=== PATIENT | male | born 1940 | race Caucasian/White ===

== ENCOUNTER 2017-10-21 10:57 | Inpatient (IN) | payer MEDICARE, OTHER ==
[~2017-10-21] VITALS: Ht 177.8 cm; Wt 132.9 kg
[~2017-10-21 10:57] MED LIST: ALLO300 PO; AMLO5 PO; ASPI325 PO; Actos15 MG PO; BENA20 PO; Benazepril HCl40 MG PO; CARV25 PO; DOXA2 PO; FINA5 PO; FISH1000 PO; FURO40 PO; GLIM2 PO; Glucophage1000 MG PO; HYDR1TAB94 PO; IPRAOI; Klor-Con 1010 MEQ PO; METO25ER PO; OXYC10TA19; OXYC5 PO; PIOG15 PO; Percocet 5-3251 EACH PO; SIMV40 PO; SPIR25 PO; TIOT18 INH; VITAMIN D2000 UNIT PO; WARF5 PO
[2017-10-21] MEDS ORDERED: GLIM2 PO (11:30)
[2017-10-21] MEDS ORDERED: Aspirin EC81 MG (11:31)
[2017-10-21] MEDS ORDERED: BENA20 PO (11:31)
[2017-10-21] MEDS ORDERED: Ferrousul325 MG PO (11:32)
[2017-10-21] MEDS ORDERED: DOXA2 PO (11:32)
[2017-10-21] MEDS ORDERED: FLONASE ALLERG9.9 ML NS (11:33)
[2017-10-21] MEDS ORDERED: SPIRIVA RESPIMAT4 G1 IH (11:34)
[2017-10-21] MEDS ORDERED: POTCHL10ER PO (11:34)
[2017-10-21] MEDS ORDERED: AMLO5 PO (11:35)
[2017-10-21] MEDS ORDERED: METF500 PO (11:36)
[2017-10-21] MEDS ORDERED: SPIR25 PO (11:38)
[2017-10-21 12:49] LABS: BASOPHILS ABSOLUTE AUTO 0.01 K/mm3 (0.00-0.23); BASOPHILS PERCENT AUTO 0 % (0-2); EOSINOPHILS ABSOLUTE AUTO 0.02 K/mm3 (0.00-0.68); EOSINOPHILS PERCENT AUTO 0 % (0-6); Hematocrit 24.7 % (37.0-53.0); Hemoglobin 7.9 g/dL (13.5-17.5); IMMATURE GRAN ABSOLUTE AUTO 0.05 K/mm3 (0.00-0.10); IMMATURE GRAN PERCENT AUTO 1 % (0-1); LYMPHOCYTES ABSOLUTE AUTO 0.68 K/mm3 (0.84-5.20); LYMPHOCYTES PERCENT AUTO 10 % (21-46); MONOCYTES ABSOLUTE AUTO 0.46 K/mm3 (0.16-1.47); MONOCYTES PERCENT AUTO 7 % (4-13); Mean Corpuscular HGB 25.2 pg (26.0-34.0); Mean Corpuscular Volume 79 fL (80-100); Mean Platelet Volume 11.1 fL (9.1-12.4); NEUTROPHILS ABSOLUTE AUTO 5.69 K/mm3 (1.96-9.15); NEUTROPHILS PERCENT AUTO 82 % (41-73); Platelet Count 131 K/mm3 (150-400); RDW Coefficient Variation 17.7 % (11.7-14.2); RDW Standard Deviation 51.3 fL (35.1-46.3); Red Blood Cell Count 3.13 M/mm3 (4.30-5.90); White Blood Cell Count 6.91 K/mm3 (4.00-11.30)
[2017-10-21 13:13] LABS: Albumin/Globulin Ratio 0.3 (0.8-1.8); Bilirubin, Total 0.3 mg/dL (0.1-1.0); Creatinine, Blood 4.34 mg/dL (0.60-1.20); Globulin, Blood 5.9 g/dL (2.2-4.0); Potassium, Blood 7.5 mmol/L (3.5-5.5); Total Protein, Blood 7.9 g/dL (6.4-8.2)
[2017-10-21 13:55] LABS: Calcium, Ionized (POC) 1.19 mmol/L (1.10-1.46); Chloride (POC) 112 mmol/L (98-108); Creatinine (POC) 4.9 mg/dL (0.8-1.3); Glucose (ISTAT POC) 58 mg/dL (70-99); Hemoglobin (POC) 7.5 g/dL (13.5-17.5); Potassium (POC) 6.9 mmol/L (3.5-5.5); Sodium (POC) 132 mmol/L (135-148); Total CO2 (POC) 13 mmol/L (21-32)
[2017-10-21 14:33] LABS: Prothrombin Time Results 148.7 Sec (9.7-11.5)
[2017-10-21] MEDS ORDERED: CHOL10002 PO (16:22)
[2017-10-21] MEDS ORDERED: LIDO700A20 TOP (16:27)
[2017-10-21] MEDS ORDERED: PANT40 PO (16:29)
[2017-10-21] MEDS ORDERED: Afrin15 ML (16:34)
[2017-10-21] MEDS ORDERED: HYDR1TAB94 PO (16:36)
[2017-10-21] MEDS ORDERED: Coumadin7.5 MG PO (16:41)
[2017-10-21] MEDS ORDERED: AQUACEL1 EACH TOP (16:44)
[2017-10-21] MEDS ORDERED: Pedi-Dri 100,0060 GM TOP (16:59)
[2017-10-21 18:04] LABS: Source, Urine Catheter
[2017-10-21 18:07] LABS: Blood, Urine 5+ (Neg); Glucose Qualitative, Urine Neg (Neg); Ketones, Urine 1+ (Neg); Leukocyte Esterase, Urine 2+ (Neg); Nitrite, Urine Neg (Neg); Protein, Urine 3+ (Neg); Urobilinogen, Urine 1+ (Normal)
[2017-10-21 18:37] LABS: Appearance, Urine Cloudy (Clear); Bilirubin, Urine 2+ (Neg); Color, Urine Amber (P-Yellow)
[2017-10-21 18:38] LABS: Bacteria Many /hpf; Red Blood Cells, Urine TNTC /hpf (0-2); Squamous Epithelial Cells Few /hpf (Few); White Blood Cells, Urine TNTC /hpf (0-5)
[2017-10-21 21:34] LABS: Prothrombin Time Results 115.6 Sec (9.7-11.5)
[2017-10-21 21:35] LABS: International Normalized Ratio 10.34
[2017-10-21 23:05] LABS: Hematocrit 25.6 % (37.0-53.0); Hemoglobin 8.2 g/dL (13.5-17.5)
[2017-10-21 23:35] LABS: Calcium, Blood 8.2 mg/dL (8.5-10.1); Creatinine, Blood 4.06 mg/dL (0.60-1.20); Potassium, Blood 6.8 mmol/L (3.5-5.5)
[2017-10-22 06:30] LABS: International Normalized Ratio 3.25
[2017-10-22 06:49] LABS: BASOPHILS ABSOLUTE AUTO 0.01 K/mm3 (0.00-0.23); BASOPHILS PERCENT AUTO 0 % (0-2); EOSINOPHILS ABSOLUTE AUTO 0.02 K/mm3 (0.00-0.68); EOSINOPHILS PERCENT AUTO 0 % (0-6); Hematocrit 25.3 % (37.0-53.0); Hemoglobin 8.4 g/dL (13.5-17.5); IMMATURE GRAN ABSOLUTE AUTO 0.07 K/mm3 (0.00-0.10); IMMATURE GRAN PERCENT AUTO 1 % (0-1); LYMPHOCYTES PERCENT AUTO 6 % (21-46); MONOCYTES ABSOLUTE AUTO 0.54 K/mm3 (0.16-1.47); MONOCYTES PERCENT AUTO 9 % (4-13); Mean Corpuscular HGB 26.3 pg (26.0-34.0); Mean Corpuscular HGB Conc 33.2 g/dL (31.5-36.5); Mean Corpuscular Volume 79 fL (80-100); Mean Platelet Volume 10.8 fL (9.1-12.4); NEUTROPHILS ABSOLUTE AUTO 5.25 K/mm3 (1.96-9.15); NEUTROPHILS PERCENT AUTO 83 % (41-73); Platelet Count 118 K/mm3 (150-400); RDW Coefficient Variation 17.2 % (11.7-14.2); RDW Standard Deviation 49.9 fL (35.1-46.3); Red Blood Cell Count 3.19 M/mm3 (4.30-5.90); White Blood Cell Count 6.29 K/mm3 (4.00-11.30)
[2017-10-22 06:50] LABS: Alanine Aminotransfer (ALT/SGP 25 U/L (12-78); Albumin, Blood 1.9 g/dL (3.4-5.0); Albumin/Globulin Ratio 0.4 (0.8-1.8); Alk Phos 100 U/L (50-136); Anion Gap 12 mmol/L (6-16); Aspartate Aminotrans (AST/SGOT 45 U/L (12-37); Bilirubin, Total 0.6 mg/dL (0.1-1.0); Blood Urea Nitrogen 124 mg/dL (8-24); Bun/Creatinine Ratio 32.7 (12.0-20.0); CO2, Blood 17 mmol/L (21-32); CPK Creatine Kinase 109 U/L (39-308); Calcium, Blood 8.6 mg/dL (8.5-10.1); Chloride, Blood 108 mmol/L (98-108); Creatinine, Blood 3.79 mg/dL (0.60-1.20); Globulin, Blood 5.4 g/dL (2.2-4.0); Glomerular Filtration Rate 16 (60-); Glucose, Blood 72 mg/dL (70-99); Magnesium, Blood 2.2 mg/dL (1.6-2.4); Phosphorus, Blood 4.4 mg/dL (2.5-4.9); Potassium, Blood 5.9 mmol/L (3.5-5.5); Sodium, Blood 137 mmol/L (136-145); Total Protein, Blood 7.3 g/dL (6.4-8.2)
[2017-10-22 07:17] LABS: BASOPHILS ABSOLUTE MAN 0.06 K/mm3 (0.00-0.23); BASOPHILS PERCENT MAN 1 % (0-2); EOSINOPHILS PERCENT MAN 0 % (0-6); LYMPHOCYTES ABSOLUTE MAN 0.62 K/mm3 (0.84-5.20); LYMPHOCYTES PERCENT MAN 10 % (21-46); MONOCYTES ABSOLUTE MAN 0.06 K/mm3 (0.16-1.47); MONOCYTES PERCENT MAN 1 % (4-13); NEUTROPHILS ABSOLUTE MAN 5.53 K/mm3 (1.96-9.15); SEG NEUTROPHILS PERCENT MAN 88 % (41-73); TOTAL CELLS COUNTED 100
[2017-10-22 18:36] LABS: Hematocrit 26.3 % (37.0-53.0); Hemoglobin 8.5 g/dL (13.5-17.5)
[2017-10-23 05:54] LABS: Hematocrit 22.3 % (37.0-53.0); Hemoglobin 7.1 g/dL (13.5-17.5); Mean Corpuscular HGB 26.1 pg (26.0-34.0); Mean Corpuscular HGB Conc 31.8 g/dL (31.5-36.5); Mean Platelet Volume 10.4 fL (9.1-12.4); Platelet Count 80 K/mm3 (150-400); RDW Coefficient Variation 17.6 % (11.7-14.2); RDW Standard Deviation 53.3 fL (35.1-46.3); Red Blood Cell Count 2.72 M/mm3 (4.30-5.90); White Blood Cell Count 4.12 K/mm3 (4.00-11.30)
[2017-10-23 05:57] LABS: Mean Corpuscular Volume 82 fL (80-100)
[2017-10-23 06:11] LABS: Albumin, Blood 1.7 g/dL (3.4-5.0); Anion Gap 8 mmol/L (6-16); Blood Urea Nitrogen 117 mg/dL (8-24); Bun/Creatinine Ratio 38.6 (12.0-20.0); CO2, Blood 24 mmol/L (21-32); Calcium, Blood 7.8 mg/dL (8.5-10.1); Chloride, Blood 108 mmol/L (98-108); Creatinine, Blood 3.03 mg/dL (0.60-1.20); Glomerular Filtration Rate 21 (60-); Glucose, Blood 191 mg/dL (70-99); Magnesium, Blood 2.1 mg/dL (1.6-2.4); Phosphorus, Blood 3.7 mg/dL (2.5-4.9); Potassium, Blood 4.9 mmol/L (3.5-5.5); Sodium, Blood 140 mmol/L (136-145)
[2017-10-23 08:46] LABS: International Normalized Ratio 2.3; Prothrombin Time Results 24.5 Sec (9.7-11.5)
[2017-10-24 04:09] LABS: BASOPHILS ABSOLUTE AUTO 0.01 K/mm3 (0.00-0.23); BASOPHILS PERCENT AUTO 0 % (0-2); EOSINOPHILS ABSOLUTE AUTO 0.04 K/mm3 (0.00-0.68); EOSINOPHILS PERCENT AUTO 1 % (0-6); Hematocrit 25.2 % (37.0-53.0); Hemoglobin 7.8 g/dL (13.5-17.5); IMMATURE GRAN ABSOLUTE AUTO 0.05 K/mm3 (0.00-0.10); IMMATURE GRAN PERCENT AUTO 1 % (0-1); LYMPHOCYTES ABSOLUTE AUTO 0.66 K/mm3 (0.84-5.20); LYMPHOCYTES PERCENT AUTO 14 % (21-46); MONOCYTES ABSOLUTE AUTO 0.38 K/mm3 (0.16-1.47); MONOCYTES PERCENT AUTO 8 % (4-13); Mean Corpuscular HGB 26.8 pg (26.0-34.0); NEUTROPHILS ABSOLUTE AUTO 3.47 K/mm3 (1.96-9.15); NEUTROPHILS PERCENT AUTO 75 % (41-73); Platelet Count 103 K/mm3 (150-400); RDW Coefficient Variation 20.5 % (11.7-14.2); RDW Standard Deviation 57.7 fL (35.1-46.3); Red Blood Cell Count 2.91 M/mm3 (4.30-5.90); White Blood Cell Count 4.61 K/mm3 (4.00-11.30)
[2017-10-24 04:12] LABS: Mean Corpuscular Volume 87 fL (80-100)
[2017-10-24 05:51] LABS: International Normalized Ratio 1.85; Prothrombin Time Results 19.6 Sec (9.7-11.5)
[2017-10-24 06:02] LABS: Albumin, Blood 1.7 g/dL (3.4-5.0); Albumin/Globulin Ratio 0.4 (0.8-1.8); Bilirubin, Total 0.6 mg/dL (0.1-1.0); Bun/Creatinine Ratio 41.4 (12.0-20.0); Creatinine, Blood 2.32 mg/dL (0.60-1.20); Globulin, Blood 4.7 g/dL (2.2-4.0); Magnesium, Blood 2.2 mg/dL (1.6-2.4); Phosphorus, Blood 3.3 mg/dL (2.5-4.9); Potassium, Blood 4.3 mmol/L (3.5-5.5); Total Protein, Blood 6.4 g/dL (6.4-8.2)
[2017-10-25 04:43] LABS: BASOPHILS ABSOLUTE AUTO 0.01 K/mm3 (0.00-0.23); BASOPHILS PERCENT AUTO 0 % (0-2); EOSINOPHILS ABSOLUTE AUTO 0.06 K/mm3 (0.00-0.68); EOSINOPHILS PERCENT AUTO 1 % (0-6); Hematocrit 26.5 % (37.0-53.0); Hemoglobin 8.4 g/dL (13.5-17.5); IMMATURE GRAN ABSOLUTE AUTO 0.09 K/mm3 (0.00-0.10); IMMATURE GRAN PERCENT AUTO 2 % (0-1); LYMPHOCYTES ABSOLUTE AUTO 0.77 K/mm3 (0.84-5.20); LYMPHOCYTES PERCENT AUTO 18 % (21-46); MONOCYTES ABSOLUTE AUTO 0.32 K/mm3 (0.16-1.47); MONOCYTES PERCENT AUTO 8 % (4-13); Mean Corpuscular HGB 26.8 pg (26.0-34.0); Mean Corpuscular HGB Conc 31.7 g/dL (31.5-36.5); Mean Platelet Volume 9.9 fL (9.1-12.4); NEUTROPHILS ABSOLUTE AUTO 2.97 K/mm3 (1.96-9.15); NEUTROPHILS PERCENT AUTO 71 % (41-73); Platelet Count 83 K/mm3 (150-400); RDW Coefficient Variation 17.4 % (11.7-14.2); RDW Standard Deviation 53.9 fL (35.1-46.3); Red Blood Cell Count 3.14 M/mm3 (4.30-5.90); White Blood Cell Count 4.22 K/mm3 (4.00-11.30)
[2017-10-25 04:56] LABS: Mean Corpuscular Volume 84 fL (80-100)
[2017-10-25 04:59] LABS: International Normalized Ratio 1.74; Prothrombin Time Results 18.4 Sec (9.7-11.5)
[2017-10-25 05:02] LABS: Albumin, Blood 1.8 g/dL (3.4-5.0); Anion Gap 5 mmol/L (6-16); Blood Urea Nitrogen 68 mg/dL (8-24); Bun/Creatinine Ratio 41.7 (12.0-20.0); CO2, Blood 26 mmol/L (21-32); Calcium, Blood 8.1 mg/dL (8.5-10.1); Chloride, Blood 116 mmol/L (98-108); Creatinine, Blood 1.63 mg/dL (0.60-1.20); Glomerular Filtration Rate 44 (60-); Glucose, Blood 174 mg/dL (70-99); Magnesium, Blood 2.2 mg/dL (1.6-2.4); Phosphorus, Blood 2.5 mg/dL (2.5-4.9); Sodium, Blood 147 mmol/L (136-145)
[2017-10-26 05:18] LABS: BASOPHILS ABSOLUTE AUTO 0.01 K/mm3 (0.00-0.23); BASOPHILS PERCENT AUTO 0 % (0-2); EOSINOPHILS ABSOLUTE AUTO 0.05 K/mm3 (0.00-0.68); EOSINOPHILS PERCENT AUTO 1 % (0-6); Hemoglobin 8.2 g/dL (13.5-17.5); IMMATURE GRAN ABSOLUTE AUTO 0.14 K/mm3 (0.00-0.10); IMMATURE GRAN PERCENT AUTO 3 % (0-1); LYMPHOCYTES ABSOLUTE AUTO 0.98 K/mm3 (0.84-5.20); LYMPHOCYTES PERCENT AUTO 22 % (21-46); MONOCYTES ABSOLUTE AUTO 0.38 K/mm3 (0.16-1.47); MONOCYTES PERCENT AUTO 9 % (4-13); Mean Corpuscular HGB 26.4 pg (26.0-34.0); Mean Corpuscular HGB Conc 31.5 g/dL (31.5-36.5); Mean Corpuscular Volume 84 fL (80-100); Mean Platelet Volume 10.3 fL (9.1-12.4); NEUTROPHILS ABSOLUTE AUTO 2.89 K/mm3 (1.96-9.15); NEUTROPHILS PERCENT AUTO 65 % (41-73); Platelet Count 86 K/mm3 (150-400); RDW Coefficient Variation 17.3 % (11.7-14.2); RDW Standard Deviation 53.2 fL (35.1-46.3); Red Blood Cell Count 3.11 M/mm3 (4.30-5.90); White Blood Cell Count 4.45 K/mm3 (4.00-11.30)
[2017-10-26 05:48] LABS: Albumin, Blood 1.8 g/dL (3.4-5.0); Anion Gap 6 mmol/L (6-16); Blood Urea Nitrogen 41 mg/dL (8-24); Bun/Creatinine Ratio 34.2 (12.0-20.0); CO2, Blood 24 mmol/L (21-32); Calcium, Blood 8.2 mg/dL (8.5-10.1); Chloride, Blood 117 mmol/L (98-108); Glomerular Filtration Rate >60 (60-); Glucose, Blood 157 mg/dL (70-99); Magnesium, Blood 1.9 mg/dL (1.6-2.4); Phosphorus, Blood 1.9 mg/dL (2.5-4.9); Potassium, Blood 3.9 mmol/L (3.5-5.5); Sodium, Blood 147 mmol/L (136-145)
[2017-10-27 04:23] LABS: Hematocrit 24.8 % (37.0-53.0); Hemoglobin 7.9 g/dL (13.5-17.5)
[2017-10-27 05:54] LABS: Albumin, Blood 1.8 g/dL (3.4-5.0); Anion Gap 8 mmol/L (6-16); Blood Urea Nitrogen 29 mg/dL (8-24); CO2, Blood 23 mmol/L (21-32); Chloride, Blood 112 mmol/L (98-108); Glomerular Filtration Rate >60 (60-); Glucose, Blood 149 mg/dL (70-99); Magnesium, Blood 1.8 mg/dL (1.6-2.4); Phosphorus, Blood 2.3 mg/dL (2.5-4.9); Potassium, Blood 3.8 mmol/L (3.5-5.5); Sodium, Blood 143 mmol/L (136-145)
[2017-10-27 15:04] LABS: Stool Occult Bld Immuno 1 Negative (NEGATIVE)
[2017-10-28 04:17] LABS: Hematocrit 26.6 % (37.0-53.0); Hemoglobin 8.4 g/dL (13.5-17.5)
[2017-10-28 04:44] LABS: Albumin, Blood 1.9 g/dL (3.4-5.0); Anion Gap 8 mmol/L (6-16); Blood Urea Nitrogen 24 mg/dL (8-24); Bun/Creatinine Ratio 25.7 (12.0-20.0); CO2, Blood 22 mmol/L (21-32); Calcium, Blood 8.1 mg/dL (8.5-10.1); Chloride, Blood 111 mmol/L (98-108); Creatinine, Blood 0.93 mg/dL (0.60-1.20); Glomerular Filtration Rate >60 (60-); Glucose, Blood 118 mg/dL (70-99); Magnesium, Blood 1.7 mg/dL (1.6-2.4); Phosphorus, Blood 2.7 mg/dL (2.5-4.9); Potassium, Blood 3.7 mmol/L (3.5-5.5); Sodium, Blood 141 mmol/L (136-145)
[2017-10-28 09:07] LABS: Vancomycin, Trough 15.5 ug/mL (5.0-10.0)
[2017-10-29 05:43] LABS: Hematocrit 23.4 % (37.0-53.0); Hemoglobin 7.6 g/dL (13.5-17.5)
[2017-10-29 06:08] LABS: Albumin, Blood 1.7 g/dL (3.4-5.0); Anion Gap 10 mmol/L (6-16); Blood Urea Nitrogen 26 mg/dL (8-24); Bun/Creatinine Ratio 27.2 (12.0-20.0); CO2, Blood 22 mmol/L (21-32); Calcium, Blood 7.9 mg/dL (8.5-10.1); Chloride, Blood 109 mmol/L (98-108); Creatinine, Blood 0.96 mg/dL (0.60-1.20); Glomerular Filtration Rate >60 (60-); Glucose, Blood 150 mg/dL (70-99); Magnesium, Blood 1.7 mg/dL (1.6-2.4); Phosphorus, Blood 2.5 mg/dL (2.5-4.9); Potassium, Blood 3.4 mmol/L (3.5-5.5); Sodium, Blood 141 mmol/L (136-145)
[2017-10-30 05:37] LABS: BASOPHILS ABSOLUTE AUTO 0.01 K/mm3 (0.00-0.23); BASOPHILS PERCENT AUTO 0 % (0-2); EOSINOPHILS ABSOLUTE AUTO 0.05 K/mm3 (0.00-0.68); EOSINOPHILS PERCENT AUTO 1 % (0-6); Hematocrit 24.8 % (37.0-53.0); IMMATURE GRAN ABSOLUTE AUTO 0.05 K/mm3 (0.00-0.10); IMMATURE GRAN PERCENT AUTO 1 % (0-1); LYMPHOCYTES ABSOLUTE AUTO 0.86 K/mm3 (0.84-5.20); LYMPHOCYTES PERCENT AUTO 17 % (21-46); MONOCYTES ABSOLUTE AUTO 0.35 K/mm3 (0.16-1.47); MONOCYTES PERCENT AUTO 7 % (4-13); Mean Corpuscular HGB 26.8 pg (26.0-34.0); Mean Corpuscular HGB Conc 32.3 g/dL (31.5-36.5); Mean Corpuscular Volume 83 fL (80-100); Mean Platelet Volume 10.7 fL (9.1-12.4); NEUTROPHILS ABSOLUTE AUTO 3.64 K/mm3 (1.96-9.15); NEUTROPHILS PERCENT AUTO 73 % (41-73); Platelet Count 79 K/mm3 (150-400); RDW Coefficient Variation 17.7 % (11.7-14.2); RDW Standard Deviation 52.7 fL (35.1-46.3); Red Blood Cell Count 2.99 M/mm3 (4.30-5.90); White Blood Cell Count 4.96 K/mm3 (4.00-11.30)
[2017-10-30 06:18] LABS: Alanine Aminotransfer (ALT/SGP 29 U/L (12-78); Albumin, Blood 1.9 g/dL (3.4-5.0); Albumin/Globulin Ratio 0.4 (0.8-1.8); Alk Phos 89 U/L (50-136); Anion Gap 9 mmol/L (6-16); Aspartate Aminotrans (AST/SGOT 37 U/L (12-37); Bilirubin, Total 0.8 mg/dL (0.1-1.0); Blood Urea Nitrogen 25 mg/dL (8-24); Bun/Creatinine Ratio 29.7 (12.0-20.0); CO2, Blood 23 mmol/L (21-32); Calcium, Blood 8.1 mg/dL (8.5-10.1); Chloride, Blood 109 mmol/L (98-108); Creatinine, Blood 0.84 mg/dL (0.60-1.20); Globulin, Blood 4.6 g/dL (2.2-4.0); Glomerular Filtration Rate >60 (60-); Glucose, Blood 148 mg/dL (70-99); Magnesium, Blood 1.8 mg/dL (1.6-2.4); Phosphorus, Blood 2.4 mg/dL (2.5-4.9); Potassium, Blood 3.5 mmol/L (3.5-5.5); Sodium, Blood 141 mmol/L (136-145); Total Protein, Blood 6.5 g/dL (6.4-8.2)
[2017-10-30 17:12] LABS: Vancomycin, Trough 20.7 ug/mL (5.0-10.0)
[2017-10-31 06:22] LABS: Hematocrit 24.4 % (37.0-53.0); Hemoglobin 7.8 g/dL (13.5-17.5)
[2017-10-31 06:38] LABS: Albumin, Blood 1.9 g/dL (3.4-5.0); Anion Gap 6 mmol/L (6-16); Blood Urea Nitrogen 22 mg/dL (8-24); Bun/Creatinine Ratio 27.1 (12.0-20.0); CO2, Blood 24 mmol/L (21-32); Calcium, Blood 8.1 mg/dL (8.5-10.1); Chloride, Blood 111 mmol/L (98-108); Creatinine, Blood 0.81 mg/dL (0.60-1.20); Glomerular Filtration Rate >60 (60-); Glucose, Blood 136 mg/dL (70-99); Magnesium, Blood 1.8 mg/dL (1.6-2.4); Phosphorus, Blood 2.4 mg/dL (2.5-4.9); Potassium, Blood 3.6 mmol/L (3.5-5.5); Sodium, Blood 141 mmol/L (136-145)
[2017-11-01 05:52] LABS: BASOPHILS ABSOLUTE AUTO 0.01 K/mm3 (0.00-0.23); BASOPHILS PERCENT AUTO 0 % (0-2); EOSINOPHILS ABSOLUTE AUTO 0.03 K/mm3 (0.00-0.68); EOSINOPHILS PERCENT AUTO 1 % (0-6); Hematocrit 25.5 % (37.0-53.0); Hemoglobin 8.2 g/dL (13.5-17.5); IMMATURE GRAN ABSOLUTE AUTO 0.03 K/mm3 (0.00-0.10); IMMATURE GRAN PERCENT AUTO 1 % (0-1); LYMPHOCYTES ABSOLUTE AUTO 0.67 K/mm3 (0.84-5.20); LYMPHOCYTES PERCENT AUTO 15 % (21-46); MONOCYTES ABSOLUTE AUTO 0.49 K/mm3 (0.16-1.47); MONOCYTES PERCENT AUTO 11 % (4-13); Mean Corpuscular HGB 26.9 pg (26.0-34.0); Mean Corpuscular HGB Conc 32.2 g/dL (31.5-36.5); Mean Corpuscular Volume 84 fL (80-100); Mean Platelet Volume 10.6 fL (9.1-12.4); NEUTROPHILS ABSOLUTE AUTO 3.36 K/mm3 (1.96-9.15); NEUTROPHILS PERCENT AUTO 73 % (41-73); Platelet Count 89 K/mm3 (150-400); RDW Coefficient Variation 18.1 % (11.7-14.2); RDW Standard Deviation 54.2 fL (35.1-46.3); Red Blood Cell Count 3.05 M/mm3 (4.30-5.90); White Blood Cell Count 4.59 K/mm3 (4.00-11.30)
[2017-11-01 06:27] LABS: Anion Gap 8 mmol/L (6-16); Blood Urea Nitrogen 23 mg/dL (8-24); Bun/Creatinine Ratio 29.1 (12.0-20.0); CO2, Blood 24 mmol/L (21-32); Calcium, Blood 8.3 mg/dL (8.5-10.1); Chloride, Blood 110 mmol/L (98-108); Creatinine, Blood 0.79 mg/dL (0.60-1.20); Glomerular Filtration Rate >60 (60-); Glucose, Blood 147 mg/dL (70-99); Magnesium, Blood 1.9 mg/dL (1.6-2.4); Phosphorus, Blood 2.7 mg/dL (2.5-4.9); Potassium, Blood 3.4 mmol/L (3.5-5.5); Sodium, Blood 142 mmol/L (136-145)
[2017-11-02 05:48] LABS: BASOPHILS ABSOLUTE AUTO 0.01 K/mm3 (0.00-0.23); BASOPHILS PERCENT AUTO 0 % (0-2); EOSINOPHILS ABSOLUTE AUTO 0.05 K/mm3 (0.00-0.68); EOSINOPHILS PERCENT AUTO 1 % (0-6); Hematocrit 25.5 % (37.0-53.0); IMMATURE GRAN ABSOLUTE AUTO 0.02 K/mm3 (0.00-0.10); IMMATURE GRAN PERCENT AUTO 0 % (0-1); LYMPHOCYTES ABSOLUTE AUTO 0.61 K/mm3 (0.84-5.20); LYMPHOCYTES PERCENT AUTO 14 % (21-46); MONOCYTES ABSOLUTE AUTO 0.46 K/mm3 (0.16-1.47); MONOCYTES PERCENT AUTO 10 % (4-13); Mean Corpuscular HGB 26.2 pg (26.0-34.0); Mean Corpuscular HGB Conc 31.4 g/dL (31.5-36.5); Mean Corpuscular Volume 84 fL (80-100); NEUTROPHILS ABSOLUTE AUTO 3.37 K/mm3 (1.96-9.15); NEUTROPHILS PERCENT AUTO 75 % (41-73); Platelet Count 94 K/mm3 (150-400); RDW Coefficient Variation 18.3 % (11.7-14.2); RDW Standard Deviation 54.8 fL (35.1-46.3); Red Blood Cell Count 3.05 M/mm3 (4.30-5.90); White Blood Cell Count 4.52 K/mm3 (4.00-11.30)
[2017-11-02 06:09] LABS: Magnesium, Blood 1.9 mg/dL (1.6-2.4)
[2017-11-02 06:12] LABS: Albumin, Blood 1.9 g/dL (3.4-5.0); Anion Gap 7 mmol/L (6-16); Blood Urea Nitrogen 22 mg/dL (8-24); Bun/Creatinine Ratio 29.3 (12.0-20.0); CO2, Blood 25 mmol/L (21-32); Calcium, Blood 8.3 mg/dL (8.5-10.1); Chloride, Blood 111 mmol/L (98-108); Creatinine, Blood 0.75 mg/dL (0.60-1.20); Glomerular Filtration Rate >60 (60-); Glucose, Blood 147 mg/dL (70-99); Phosphorus, Blood 2.1 mg/dL (2.5-4.9); Potassium, Blood 3.5 mmol/L (3.5-5.5); Sodium, Blood 143 mmol/L (136-145)
[2017-11-03 05:58] LABS: BASOPHILS ABSOLUTE AUTO 0.01 K/mm3 (0.00-0.23); BASOPHILS PERCENT AUTO 0 % (0-2); EOSINOPHILS ABSOLUTE AUTO 0.04 K/mm3 (0.00-0.68); EOSINOPHILS PERCENT AUTO 1 % (0-6); Hematocrit 24.9 % (37.0-53.0); IMMATURE GRAN ABSOLUTE AUTO 0.02 K/mm3 (0.00-0.10); IMMATURE GRAN PERCENT AUTO 0 % (0-1); LYMPHOCYTES ABSOLUTE AUTO 0.77 K/mm3 (0.84-5.20); LYMPHOCYTES PERCENT AUTO 16 % (21-46); MONOCYTES ABSOLUTE AUTO 0.46 K/mm3 (0.16-1.47); MONOCYTES PERCENT AUTO 10 % (4-13); Mean Corpuscular HGB 26.4 pg (26.0-34.0); Mean Corpuscular HGB Conc 32.1 g/dL (31.5-36.5); Mean Corpuscular Volume 82 fL (80-100); Mean Platelet Volume 10.5 fL (9.1-12.4); NEUTROPHILS ABSOLUTE AUTO 3.47 K/mm3 (1.96-9.15); NEUTROPHILS PERCENT AUTO 73 % (41-73); Platelet Count 101 K/mm3 (150-400); RDW Coefficient Variation 18.4 % (11.7-14.2); RDW Standard Deviation 54.4 fL (35.1-46.3); Red Blood Cell Count 3.03 M/mm3 (4.30-5.90); White Blood Cell Count 4.77 K/mm3 (4.00-11.30)
[2017-11-03 06:16] LABS: Anion Gap 7 mmol/L (6-16); Blood Urea Nitrogen 24 mg/dL (8-24); Bun/Creatinine Ratio 28.3 (12.0-20.0); CO2, Blood 24 mmol/L (21-32); Calcium, Blood 8.5 mg/dL (8.5-10.1); Chloride, Blood 110 mmol/L (98-108); Creatinine, Blood 0.85 mg/dL (0.60-1.20); Glomerular Filtration Rate >60 (60-); Glucose, Blood 160 mg/dL (70-99); Phosphorus, Blood 2.5 mg/dL (2.5-4.9); Potassium, Blood 3.6 mmol/L (3.5-5.5); Sodium, Blood 141 mmol/L (136-145)
[2017-11-03 21:37] LABS: Vancomycin, Trough 15.5 ug/mL (5.0-10.0)
[2017-11-04 05:51] LABS: BASOPHILS ABSOLUTE AUTO 0.01 K/mm3 (0.00-0.23); BASOPHILS PERCENT AUTO 0 % (0-2); EOSINOPHILS ABSOLUTE AUTO 0.06 K/mm3 (0.00-0.68); EOSINOPHILS PERCENT AUTO 2 % (0-6); Hematocrit 26.7 % (37.0-53.0); Hemoglobin 8.7 g/dL (13.5-17.5); IMMATURE GRAN ABSOLUTE AUTO 0.02 K/mm3 (0.00-0.10); IMMATURE GRAN PERCENT AUTO 1 % (0-1); LYMPHOCYTES ABSOLUTE AUTO 0.52 K/mm3 (0.84-5.20); LYMPHOCYTES PERCENT AUTO 13 % (21-46); MONOCYTES ABSOLUTE AUTO 0.41 K/mm3 (0.16-1.47); MONOCYTES PERCENT AUTO 10 % (4-13); Mean Corpuscular HGB 26.9 pg (26.0-34.0); Mean Corpuscular HGB Conc 32.6 g/dL (31.5-36.5); Mean Corpuscular Volume 83 fL (80-100); Mean Platelet Volume 10.6 fL (9.1-12.4); NEUTROPHILS ABSOLUTE AUTO 3.07 K/mm3 (1.96-9.15); NEUTROPHILS PERCENT AUTO 75 % (41-73); Platelet Count 100 K/mm3 (150-400); RDW Coefficient Variation 18.5 % (11.7-14.2); RDW Standard Deviation 55.5 fL (35.1-46.3); Red Blood Cell Count 3.23 M/mm3 (4.30-5.90); White Blood Cell Count 4.09 K/mm3 (4.00-11.30)
[2017-11-04 06:13] LABS: Albumin, Blood 2.1 g/dL (3.4-5.0); Anion Gap 7 mmol/L (6-16); Blood Urea Nitrogen 23 mg/dL (8-24); Bun/Creatinine Ratio 30.3 (12.0-20.0); CO2, Blood 24 mmol/L (21-32); Calcium, Blood 8.8 mg/dL (8.5-10.1); Chloride, Blood 110 mmol/L (98-108); Creatinine, Blood 0.76 mg/dL (0.60-1.20); Glomerular Filtration Rate >60 (60-); Glucose, Blood 147 mg/dL (70-99); Phosphorus, Blood 2.4 mg/dL (2.5-4.9); Potassium, Blood 3.6 mmol/L (3.5-5.5); Sodium, Blood 141 mmol/L (136-145)
== END 2017-11-14 07:45 | DRG 871 ==
LOC: ER 10:57 → MEDS 10:58 → PCU 16:49 → MEDS 16:49 → ICUE 16:49 → PCU 10-23 19:41 → MEDS 10-30 18:05
PROVIDERS: Emergency Medicine; Family Medicine; Internal Medicine; Internal Medicine Endocrinology, Diabetes & Metabolism; Internal Medicine Nephrology
PROC: 30233N1 Transfusion of Nonautologous Red Blood Cells into Peripheral Vein, Percutaneous Approach (ICD-10-PCS; principal; 2017-10-22)
DX: A41.9 Sepsis, unspecified organism (principal); G92 Toxic encephalopathy; N17.0 Acute kidney failure with tubular necrosis; K92.0 Hematemesis; E44.0 Moderate protein-calorie malnutrition; K55.9 Vascular disorder of intestine, unspecified; K29.01 Acute gastritis with bleeding; L89.150 Pressure ulcer of sacral region, unstageable; N01.9 Rapidly progressive nephritic syndrome with unspecified morphologic changes; E87.0 Hyperosmolality and hypernatremia; D62 Acute posthemorrhagic anemia; E87.2 Acidosis; F11.20 Opioid dependence, uncomplicated; N39.0 Urinary tract infection, site not specified; I95.9 Hypotension, unspecified; D69.6 Thrombocytopenia, unspecified; E66.01 Morbid (severe) obesity due to excess calories; E83.39 Other disorders of phosphorus metabolism; E87.5 Hyperkalemia; E87.6 Hypokalemia; E88.09 Other disorders of plasma-protein metabolism, not elsewhere classified; G47.33 Obstructive sleep apnea (adult) (pediatric); I70.90 Unspecified atherosclerosis; N18.9 Chronic kidney disease, unspecified; Z96.653 Presence of artificial knee joint, bilateral; E11.649 Type 2 diabetes mellitus with hypoglycemia without coma; Z66 Do not resuscitate; E11.22 Type 2 diabetes mellitus with diabetic chronic kidney disease; B95.62 Methicillin resistant Staphylococcus aureus infection as the cause of diseases classified elsewhere; Z79.01 Long term (current) use of anticoagulants; Z95.0 Presence of cardiac pacemaker
CPT/HCPCS: 36415; 36430; 72192; 74176; 80047; 80048; 80053; 80069; 80202; 81001; 82274; 82550; 82947; 83605; 83735; 84100; 85014; 85018; 85025; 85027; 85610; 85730; 86850; 86900; 86901; 86923; 87040; 87070; 87075; 87077; 87086; 87147; 87186; 87205; 92526; 92610; 93005; 93010; 93308; 93321; 94640; 94762; 96361; 96374; 96375; 97110; 97161; 97164; 97168; 99285; C1751; C9113; G8978; G8979; G8980; G8987; G8988; G8989; G8996; G8997; G8998; J0290; J0881; J1170; J1815; J1940; J2001; J2543; J3370; J3480; J7030; J7042; J7050; J7060; J7070; J7131; P9016; P9059